=== PATIENT | male | born 1965 | race Caucasian/White ===

== ENCOUNTER 2019-10-07 13:04 | Emergency (ER) | payer OTHER, MEDICAID ==
[~2019-10-07] VITALS: Ht 167.6 cm; Wt 74.8 kg
[2019-10-07 13:20] VITALS: BP_SYST 139
--- NOTE | 2019-10-07 13:20 | NUR ---
PATIENT TO ER HW #1
--- NOTE | 2019-10-07 13:30 | NUR ---
Pt sent from [facility] for med.clearance to [facility].
[2019-10-07] MEDS ORDERED: MOM PO (13:31)
[2019-10-07] MEDS ORDERED: CAT.1 PO (13:31)
[2019-10-07] MEDS ORDERED: ASPI-524 PO (13:31)
[2019-10-07] MEDS ORDERED: DIVA250T34 PO (13:31)
[2019-10-07] MEDS ORDERED: LISI20TA PO (13:31)
[2019-10-07] MEDS ORDERED: LIP10 PO (13:31)
[2019-10-07] MEDS ORDERED: MULT1CAP34 PO (13:31)
[2019-10-07] MEDS ORDERED: LEVE750T4 PO (13:31)
--- NOTE | 2019-10-07 13:40 | NUR ---
ER at bedside examining patient.
[2019-10-07 13:52] LABS: BASOPHILS % (AUTO) 0.3 % (0.0-2.0); EOSINOPHILS # (AUTO) 0.1 K/uL (0.0-0.4); EOSINOPHILS % (AUTO) 1.7 % (0.0-4.0); HEMATOCRIT 44.3 % (36-54); HEMOGLOBIN 14.9 g/dL (14.0-18.0); LYMPHOCYTES # (AUTO) 1.6 K/uL (1.0-5.5); LYMPHOCYTES % (AUTO) 29.6 % (20.5-51.5); MEAN CORPUSCULAR HEMOGLOBIN 31 pg (27-31); MEAN CORPUSCULAR HGB CONC 34 % (32-36); MEAN CORPUSCULAR VOLUME 92 fL (79.0-98.0); MONOCYTES # (AUTO) 0.4 K/uL (0.0-1.0); MONOCYTES % (AUTO) 6.8 % (1.7-9.3); NEUTROPHILS # (AUTO) 3.2 K/uL (1.8-7.7); NEUTROPHILS % (AUTO) 61.6 % (40.0-70.0); PLATELET COUNT (AUTO) 130 K/uL (130-430); RED BLOOD CELL COUNT(AUTO) 4.81 MIL/uL (4.2-6.2); RED CELL DISTRIBUTION WIDTH 13.6 % (9.0-15.0); WHITE BLOOD COUNT (AUTO) 5.2 K/uL (4.8-10.8)
[2019-10-07 14:00] LABS: ANION GAP 7 (5-15); CALCIUM 8.2 mg/dL (8.4-11.0); CHLORIDE 107 mmol/L (98-107); CREATININE 0.63 mg/dL (0.55-1.30); GLUCOSE 92 mg/dL (70-99); POTASSIUM 4.3 mmol/L (3.5-5.1); SODIUM SERUM 143 mmol/L (136-145); UREA NITROGEN, BLOOD 16 mg/dL (8-21)
--- NOTE | 2019-10-07 14:00 | NUR ---
EKG performed at BS by EMT. Physician given copy of EKG for review.
[2019-10-07 14:03] LABS: GFR AFRICAN AMERICAN 170 mL/min (>90)
[2019-10-07 14:16] LABS: ALANINE AMINOTRANSFERASE 24 U/L (12-78); ALBUMIN 3.7 g/dL (3.4-4.8); ASPARTATE AMINOTRANSFERASE 16 U/L (10-37); TOTAL BILIRUBIN 1.4 mg/dL (0.0-1.0)
[2019-10-07 14:17] LABS: ALCOHOL, BLOOD < 3 mg/dL (<10)
[2019-10-07 14:18] LABS: ACETAMINOPHEN < 1 ug/mL (1-30)
[2019-10-07 14:24] LABS: CHOLESTEROL 127 mg/dL (<200); HDL CHOLESTEROL 44 mg/dL (>45); LDL CHOLESTEROL 65 mg/dL (<100); TRIGLYCERIDES 88 mg/dL (30-150)
--- NOTE | 2019-10-07 14:35 | NUR ---
urine collected via straight cath and sent to lab
--- NOTE | 2019-10-07 14:41 | NUR ---
mrsa collected and sent to lab
[2019-10-07 15:05] LABS: BILIRUBIN,URINE NEGATIVE (NEGATIVE); CLARITY/URINE CLEAR (CLEAR); COLOR,URINE YELLOW (YELLOW); GLUCOSE,URINE NEGATIVE (NEGATIVE); KETONES,URINE NEGATIVE (NEGATIVE); LEUKOCYTE ESTERASE ,URINE NEGATIVE (NEGATIVE); NITRITE, URINE NEGATIVE (NEGATIVE); PH,URINE 6.5 (5.0-8.0); PROTEIN URINE NEGATIVE (NEGATIVE)
[2019-10-07 15:06] LABS: BLOOD, URINE TRACE (NEGATIVE)
[2019-10-07 15:26] LABS: BARBITURATE, URINE NEGATIVE (NEG <=200); BENZODIAZEPINE, URINE NEGATIVE (NEG <=150); CANNABINOID, URINE NEGATIVE (NEG <=50); COCAINE, URINE NEGATIVE (NEG <=150); METHAMPHETAMINES SCREEN,URINE NEGATIVE (NEG <=500); OPIATE, URINE NEGATIVE (NEG <=100); PHENCYCLIDINE SCREEN,URINE NEGATIVE (NEG <=25); UR TRICYCLIC ANTIDEPRESSANTS NEGATIVE (NEG <=300); URINE AMPHETAMINE NEGATIVE (NEG <=500); URINE METHADONE NEGATIVE (NEG <=200); URINE OXYCODONE SCREEN NEGATIVE (NEG <=100); URINE PROPOXYPHENE SCREEN NEGATIVE (NEG <=300)
[2019-10-07 15:27] LABS: BACTERIA,URINE FEW /HPF (None Seen)
[2019-10-07 15:29] LABS: MUCUS,URINE 2+ /LPF (None Seen)
--- NOTE | 2019-10-07 15:51 | NUR ---
pt has been medically cleared to go to [facility]. Report given to Margarita LOGAN
[2019-10-07 16:25] VITALS: BP_SYST 167
--- NOTE | 2019-10-07 16:27 | NUR ---
Patient to be transferred to [facility]. Is being transferred due to higher level of care. Receiving facility has accepting physician and available space. ER physician has signed transfer form. Patient or responsible green party has agreed to transfer and signed form. Patient belongings inventoried and will be sent with patient. Copy of nursing notes, lab reports, EKG, Physicians Orders and X-rays to be sent with patient. Report called to Margarita LOGAN at receiving facility. Receiving physician is Dr. Millan. [facility] for [facility]. Patient left in stable condition
== END 2019-10-07 16:25 | disposition home or self-care (01) ==
LOC: SED 13:04
DX: R45.6 Violent behavior (principal); I10 Essential (primary) hypertension; Z79.899 Other long term (current) drug therapy
CPT/HCPCS: 36415; 80053; 80061; 80307; 81000; 83036; 85025; 87081; 93005; 99284; G0480; G0481; G0482